=== PATIENT | female | born 1985 | race Caucasian/White ===

== ENCOUNTER 2019-02-16 04:39 | Emergency (ER) | payer OTHER, MEDICAID ==
[~2019-02-16] VITALS: Ht 167.6 cm; Wt 112.0 kg
[2019-02-16] MEDS ORDERED: BACITRACIN ZINC OINT UDPKT TOP ONE (06:30)
[2019-02-16] MEDS ORDERED: TETANUS, DIPHTHERIA, PERTUSSIS VAC/PF 0.5ML (>7YR OLD) IM ONE (06:30)
[2019-02-16] MEDS ORDERED: LIDOCAINE HCL/PF 1% 10 MG/ML 5ML VIAL IJ ONE (06:30)
[2019-02-16 07:50] VITALS: BP 118/80
== END 2019-02-16 07:53 | disposition home or self-care (01) ==
LOC: ER 04:39
DX: S61.211A Laceration without foreign body of left index finger without damage to nail, initial encounter (principal); W26.0XXA Contact with knife, initial encounter; Y93.G3 Activity, cooking and baking; Y92.010 Kitchen of single-family (private) house as the place of occurrence of the external cause; Z23 Encounter for immunization
CPT/HCPCS: 12002; 90471; 90715; 99283; J3490; A4565